=== PATIENT | male | born 1960 | race Caucasian/White ===

== ENCOUNTER 2019-05-24 13:32 | Emergency (ER) | payer OTHER, SELFPAY ==
--- NOTE | ~2019-05-24 | CT_ITS ---
EXAMINATION: CT brain wo con DATE: 05/24/2019 14:02 INDICATION: Head injury. TECHNIQUE: Computed tomography (CT) of the head was performed without intravenous contrast. The mA wa s adjusted according to patient size. Iterative reconstruction technique was employed. The dose-lengt h product was 605.33 mGy-cm. COMPARISON: None FINDINGS: There is a small volume of acute subarachnoid hemorrhage in the interhemispheric fissure, b ilateral frontal lobe sulci, and a right temporal lobe sulcus. There is no acute infarction or abnorm al intracranial mass lesion. The ventricles are normal in size. The orbits are normal. There is mild mucosal thickening in the paranasal sinuses. The mastoid air cells are normal. There is a right poste rior scalp laceration with soft tissue swelling. IMPRESSION: 1. Small volume of acute subarachnoid hemorrhage in the interhemispheric fissure, bilateral frontal l obe sulci, and a right temporal lobe sulcus. I called this result to Dr. Joya on 05/24/19 at 14:12. Reviewed, dictated and finalized at location A. IMPRESSION: 1. Small volume of acute subarachnoid hemorrhage in the interhemispheric fissur e, bilateral frontal lobe sulci, and a right temporal lobe sulcus. I called thi s result to Dr. Joya on 05/24/19 at 14:12.
--- NOTE | ~2019-05-24 | CT_ITS ---
EXAMINATION: CT cervical spine wo con DATE: 05/24/2019 14:02 INDICATION: Head injury. TECHNIQUE: Computed tomography (CT) of the cervical spine was performed without intravenous contrast. Automated exposure control and iterative reconstruction technique were employed. The dose-length pro duct was 160.13 mGy-cm. COMPARISON: None FINDINGS: There is mild emphysema. There is mild scarring at the lung apices. There is 10 degrees dex troscoliosis of cervical spine. There is kyphosis of cervical spine. Vertebral body heights are maxwell l. There is moderately decreased disc height at C3-C4 and severely decreased disc height at C4-C5 and C5-C6. The following disc levels are specifically discussed: C2-C3: There is mild right uncovertebral joint osteoarthritis. There is severe left facet joint osteo arthritis. There is ankylosis of right facet joint with mild hypertrophy. There is mild right neural foraminal stenosis. There is no central canal stenosis. C3-C4: There is severe right and moderate left uncovertebral joint osteoarthritis. There is moderate bilateral facet joint osteoarthritis. There is moderate right and mild left neural foraminal stenosis . There is mild central canal stenosis. C4-C5: There is severe bilateral uncovertebral joint osteoarthritis. There is mild bilateral facet alison int osteoarthritis. There is mild bilateral neural foraminal stenosis. There is mild central canal st enosis. C5-C6: There is severe bilateral uncovertebral joint osteoarthritis. There is mild bilateral facet alison int osteoarthritis. There is moderate bilateral neural foraminal stenosis. There is mild central geena l stenosis. C6-C7: There is no uncovertebral joint osteoarthritis. There is mild bilateral facet joint osteoarthr itis. There is no neural foraminal stenosis. There is no central canal stenosis. C7-T1: There is no uncovertebral joint osteoarthritis. There is severe bilateral facet joint osteoart hritis. There is mild bilateral neural foraminal stenosis. There is no central canal stenosis. IMPRESSION: 1. No fracture. 2. Severe cervical spondylosis. Reviewed, dictated and finalized at location A.
[2019-05-24 13:36] VITALS: BP 122/75; PULSE 108; RESP 24; TEMP 36.3; O2SAT 98
--- NOTE | 2019-05-24 13:51 | PC.NURSE ---
Pt to CT scan via stretcher, pt is on tele monitor.
--- NOTE | 2019-05-24 13:52 | PC.NURSE ---
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
--- NOTE | 2019-05-24 13:54 | ED.HEATRA ---
HPI - Head Injury General Chief complaint: Head Injury Stated complaint: HI/FALL/COMBATIVE Time Seen by Provider: 05/24/19 13:42 Source: patient and RN notes reviewed Mode of arrival: EMS Limitations: no limitations History of Present Illness HPI Narrative: A 59 y/o male presents to the ED, via EMS, with c/o right occipital HI and laceration due to a fall. 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 The patient's coworkers state that they believe he had a seizure. According to the patient, he does not remember what happened. He adds that he thinks he had the flu recently due to congestion. Pt has no PMHx of seizure, but smokes daily. He denies any drug or EtOH use. Pt reports ROBERTS, but denies dizziness and fever. On arrival to the ED, the patient is in a c-spine immobilizer. MD Complaint: head injury (and laceration) Onset (ago): hour(s) (Today) Arrival Conditions: C-spine immobilization present Mechanism of Injury: fall (Possible seizure) Place: work Loss of Consciousness: unsure Location of injury: occipital (Right) Associated symptoms: other (ROBERTS, congestion) Related Data Home Medications Medication Instructions Recorded Confirmed No Home Medications 05/24/19 05/24/19 Allergies Allergy/AdvReac Type Severity Reaction Status Date / Time No Known Allergies Allergy Verified 05/24/19 14:48 Review of Systems Review of Systems: All systems reviewed & are unremarkable except as noted in HPI and below Constitutional: Constitutional: Denies fever(s) ENT: Reports nasal congestion Integumentary/Breasts: Skin/Breast: Reports wounds (Right occipital head laceration) Neurologic: Denies dizziness, Reports headache(s) and Reports other (Right occipital HI) [facility] Past Medical History Medical History (Updated 05/24/19 @ 15:51 by Mauricio Joel MD) Medical history unknown Surgical History Surgical History (Updated 05/24/19 @ 14:26 by Aby Rivera) Surgical history unknown Social History Social History (Updated 05/24/19 @ 14:26 by Aby Rivera) Smoking status: Current some day smoker Alcohol intake: never Substance use: never Gender identity (if verbalized by the patient): Male Exam Const: General: healthy appearing, no acute distress and well developed Nutritional Appearance: well nourished Orientation/consciousness: Other orientation findings (Alert, oriented x 3.5, states it is 2016) Limitations: no limitations HENMT: Head: normocephalic and atraumatic Ears: external ears normal General nose exam: No nasal discharge present and no epistaxis Face and sinus: face symmetric Mouth: Yes lip normal, Yes tongue normal and Yes moist mucous membranes Throat: other (No exudate, no erythema) Eyes: Conjunctivae: conjunctivae normal Sclera: sclerae normal EOM: EOMs intact bilaterally Neck: Neck: full ROM, no lymphadenopathy and supple Thyroid: thyroid normal Chest: Chest palpation & inspection: no tenderness Resp: Effort & Inspection: normal respiratory effort Auscultation: clear to auscultation bilaterally, no rales, no rhonchi, no wheezes and other (breath sounds equal) Cardio: Rate: regular rate Rhythm: regular rhythm Heart sounds: no gallops and no murmurs GI: Inspection: non-distended GI Palp: No abdominal tenderness and Yes Soft to palpation Auscultation: other (bowel sounds present) : General: Yes no CVA tenderness Back/Spine/Pelvis: Back: no CVA tenderness Thoracic/Lumbar Spine: thoracic and lumbar spine normal to inspection Skin: General skin exam: normal color and no rashes or lesions noted Trauma: laceration (4 cm) right occipital region Neuro: General: moves all extremities, no focal motor deficits and other (Alert, oriented x 3.5, states it is 2016) Cranial nerves: Yes facial symmetry Speech: normal speech Motor exam (neuro): Motor abnormalities not present and Other motor o
--- NOTE | 2019-05-24 14:05 | ECG_ITS ---
Measurements Intervals [place] Rate: 108 P: 50 NH: 136 QRS: 52 QRSD: 105 T: 71 QT: 346 QTc: 464 Interpretive Statements SINUS TACHYCARDIA BORDERLINE ST ABNORMALITY- ANT/INF LEADS BASELINE WANDER- I, II, AVR, AVF ABNORMAL ECG Electronically Signed On 05-24-2019 15:55:20 CDT by Gary Oliveira D.O.
[2019-05-24 14:32] LABS: Basophils Absolute Auto 0.1 K/mm3 (0.0-0.1); Basophils Percent Auto 0.9 % (0.2-1.2); Eosinophils Absolute Auto 0.2 K/mm3 (0-0.3); Eosinophils Percent Auto 1.7 % (0-4.4); Hematocrit 44.5 % (42.0-52.0); Hemoglobin 14.8 g/dL (14.0-18.0); Immature Granulocyte Absolute 0.03 K/mm3 (0.00-0.031); Immature Granulocyte Percent A 0.3 % (0-0.5); Lymphocytes Absolute Auto 3.19 K/mm3 (0.9-3.2); Lymphocytes Percent Auto 30.4 % (18.3-44.2); Mean Corpuscular HGB Conc 33.3 g/dl (32-36); Mean Corpuscular Volume 90.3 fl (80-100); Mean Platelet Volume 9.8 fl (7.4-10.4); Monocytes Absolute Auto 0.7 K/mm3 (0.1-0.6); Monocytes Percent Auto 6.9 % (2.6-8.5); Neutrophils Absolute Auto 6.3 K/mm3 (1.3-6.7); Neutrophils Percent Auto 59.8 % (45.5-73.1); Platelet Count Result 489 k/mm3 (150-375); Red Blood Count 4.93 M/mm3 (4.6-6.20); White Blood Count 10.5 K/mm3 (4.5-10.0)
[2019-05-24 14:42] LABS: Prothrombin Time 13.2 Seconds (11.1-14.7)
[2019-05-24 14:43] LABS: Partial Thromboplastin Time 24.4 SECONDS (22.3-36.8)
[2019-05-24 14:45] LABS: Alanine Aminotransferase 18 U/L (4-50); Albumin Level 4.2 g/dL (3.5-5.1); Alkaline Phosphatase 60 U/L (38-126); Aspartate Amino Transferase 21 U/L (17-59); Bilirubin,Total 0.6 mg/dL (0.2-1.3); Blood Urea Nitrogen 10 mg/dL (9-20); Calcium 9.1 mg/dL (8.4-10.2); Carbon Dioxide 22 mmol/L (22-30); Chloride 103 mmol/L (98-107); Estimated CRCL calculation 108 ml/min; Estimated Glomerular Filt Rate > 60; Ethanol < 10 mg/dL (<10); Glucose 153 mg/dL (75-110); Potassium 2.9 mmol/L (3.4-5.0); Sodium 134 mmol/L (137-145)
[2019-05-24 14:48] VITALS: BP 112/72; PULSE 88; RESP 27; O2SAT 96
--- NOTE | 2019-05-24 15:06 | PC.NURSE ---
C Collar removed per ISA Joel.
[2019-05-24 15:18] LABS: Amphetamine Screen Urine Negative (Negative); Barbiturate Screen Urine Negative (Negative); Benzodiazepines Screen Urine Negative (Negative); Cannabinoid Screen Urine Negative (Negative); Cocaine Screen Urine Negative (Negative); Methadone Screen Urine Negative (Negative); Opiate Screen Urine Negative (Negative); Phencyclidine Screen Urine Negative (Negative)
[2019-05-24] MEDS: POTASSIUM CHLORIDE 20 MEQ PACKET (FOR LIQUID) 40 MEQ PO (15:59)
[2019-05-24] MEDS: levETIRAcetam 1000MG/NACL100ML 1,000 MG/100 ML BAG 400 MG IVPB (15:59)
[2019-05-24 16:00] VITALS: BP 111/74; PULSE 86; RESP 27; O2SAT 99
[2019-05-24 16:31] VITALS: BP 110/72; PULSE 97; RESP 30; O2SAT 96
--- NOTE | 2019-05-24 16:34 | PC.NURSE ---
Report called to Julianne LUU at [facility], .
== END 2019-05-24 16:33 | disposition short-term general hospital (02) ==
PROVIDERS: Physician Assistant; Emergency Provider Emergency Medicine
DX: S01.01XA Laceration without foreign body of scalp, initial encounter (principal); R56.1 Post traumatic seizures; E87.6 Hypokalemia; F17.200 Nicotine dependence, unspecified, uncomplicated; R00.0 Tachycardia, unspecified; R94.31 Abnormal electrocardiogram [ECG] [EKG]; W24.0XXA Contact with lifting devices, not elsewhere classified, initial encounter
CPT/HCPCS: 12002; 36415; 51701; 70450; 72125; 80053; 80307; 85025; 85610; 85730; 93005; 96365; 99285; A9270; J1953; L0140